=== PATIENT | female | born 1965 | race Caucasian/White ===

== ENCOUNTER 2021-07-09 19:50 | Emergency (ER) | payer BC ==
[~2021-07-09] VITALS: Ht 160 cm; Wt 88.5 kg
[~2021-07-09 19:50] MED LIST: COGENTIN1 MG; Z.0.AMBIEN10 MG; Z.0.ATORVASTATIN CA2; Z.0.CLONAZEPAM0.5 MG; Z.0.CYMBALTA60 MG; Z.0.LEVOTHYROXINE175; Z.0.PANTOPRAZOLE SO4; Z.0.TENORMIN50 MG; Z.0.WELLBUTRIN XL300; [UNRECOGNIZED DRUG - OTHER]
[2021-07-09] MEDS ORDERED: ACYCLOVIR800 MG PO (20:12)
[2021-07-09] MEDS ORDERED: ACETAMINOPHEN-1 EAC4 PO ×2 (20:12→20:14)
[2021-07-09] MEDS ORDERED: AZITHROMYCIN250 MG PO (20:12)
[2021-07-09] MEDS ORDERED: AZITHROMYCIN 250 MG TAB PO ONE (20:15)
[2021-07-09] MEDS ORDERED: AZITHROMYCIN 250 MG TAB ONE (20:39)
== END 2021-07-09 20:52 | disposition home or self-care (01) ==
LOC: FSED 20:10
DX: H66.92 Otitis media, unspecified, left ear (principal); B00.1 Herpesviral vesicular dermatitis; K21.9 Gastro-esophageal reflux disease without esophagitis; E78.00 Pure hypercholesterolemia, unspecified; F32.A Depression, unspecified
CPT/HCPCS: 99283

== ENCOUNTER 2022-07-10 21:01 | Emergency (ER) | payer BC ==
[~2022-07-10] VITALS: Ht 160 cm; Wt 86.2 kg
[~2022-07-10 21:01] MED LIST changes: +ACETAMINOPHEN-1 EAC4 PO; +ACYCLOVIR800 MG PO; +AZITHROMYCIN250 MG PO
[2022-07-10] MEDS ORDERED: ALBUTEROL/IPRATROPIUM 3 ML NEB NEB ONE (21:45)
[2022-07-10] MEDS ORDERED: PREDNISONE 20 MG TAB PO ONE (21:45)
[2022-07-10] MEDS ORDERED: ALBUTEROL/IPRATROPIUM 3 ML NEB ONE (22:06)
[2022-07-10] MEDS ORDERED: ALBUTEROL2.5 MG/3 M INH (23:18)
[2022-07-10] MEDS ORDERED: PREDNISONE20 MG PO (23:21)
== END 2022-07-10 23:35 | disposition home or self-care (01) ==
LOC: FSED 21:16
DX: R05.9 Cough, unspecified (principal); J45.901 Unspecified asthma with (acute) exacerbation; M54.6 Pain in thoracic spine; F41.9 Anxiety disorder, unspecified; F32.A Depression, unspecified
CPT/HCPCS: 71046; 99283; J7512

== ENCOUNTER 2023-03-19 13:47 | Emergency (ER) | payer BC ==
[~2023-03-19] VITALS: Ht 160 cm; Wt 86.2 kg
[~2023-03-19 13:47] MED LIST changes: +ALBUTEROL2.5 MG/3 M INH; +PREDNISONE20 MG PO
[2023-03-19] MEDS ORDERED: ALBUTEROL SULF 0.083% NEB SOLN 3 ML NEB NEB STA (14:02)
[2023-03-19] MEDS ORDERED: ONDANSETRON HCL 4 MG ORAL DISINTEGRATING TAB ONE (14:13)
[2023-03-19] MEDS ORDERED: DEXAMETHASONE SOD PHOS INJ 4 MG/ML SDV ONE (14:13)
[2023-03-19] MEDS ORDERED: CEFTRIAXONE 1 GM VIAL ONE (14:14)
[2023-03-19] MEDS ORDERED: ALBUTEROL SULF 0.083% NEB SOLN 3 ML NEB ONE (14:14)
[2023-03-19] MEDS ORDERED: CEFTRIAXONE 1 GM VIAL IM ONE (14:15)
[2023-03-19] MEDS ORDERED: ONDANSETRON HCL 4 MG ORAL DISINTEGRATING TAB PO ONE (14:15)
[2023-03-19] MEDS ORDERED: DEXAMETHASONE SOD PHOS 10 MG/1 ML VIAL IM ONE (14:15)
[2023-03-19 14:24] VITALS: PULSE 104; RESP 18; O2SAT 96
[2023-03-19] MEDS ORDERED: DEXAMETHASONE SOD PHOS INJ 4 MG/ML SDV IM ONE (14:30)
[2023-03-19] MEDS ORDERED: DEXAMETHASONE SOD PHOS INJ 4 MG/ML SDV IV ONE (14:30)
[2023-03-19] MEDS ORDERED: CEFDINIR300 MG PO (15:05)
[2023-03-19] MEDS ORDERED: ONDANSETRON ODT4 MG PO (15:05)
[2023-03-19] MEDS ORDERED: BROMFED DM COU118 ML PO (15:05)
== END 2023-03-19 15:30 | disposition home or self-care (01) ==
LOC: FSED 13:51
DX: R05.9 Cough, unspecified (principal); J20.9 Acute bronchitis, unspecified; J45.901 Unspecified asthma with (acute) exacerbation; E03.9 Hypothyroidism, unspecified; K21.9 Gastro-esophageal reflux disease without esophagitis; F41.9 Anxiety disorder, unspecified
CPT/HCPCS: 71045; 83518; 87400; 99283; J0696; J1100; Q0162

== ENCOUNTER 2023-12-14 15:33 | Emergency (ER) | payer BC, OTHER ==
[~2023-12-14] VITALS: Ht 160 cm; Wt 86.2 kg
[~2023-12-14 15:33] MED LIST changes: +BROMFED DM COU118 ML PO; +CEFDINIR300 MG PO; +ONDANSETRON ODT4 MG PO
[2023-12-14] MEDS ORDERED: DEXAMETHASONE SOD PHOS 10 MG/1 ML VIAL IV ONE (17:00)
[2023-12-14] MEDS ORDERED: DEXAMETHASONE SOD PHOS INJ 4 MG/ML SDV ONE (17:10)
[2023-12-14] MEDS ORDERED: CEFTRIAXONE 1 GM VIAL ONE (17:10)
[2023-12-14] MEDS ORDERED: LIDOCAINE HCL 1% LOCAL INJ 20 ML VIAL ONE (17:10)
[2023-12-14] MEDS: LIDOCAINE HCL 1% LOCAL INJ 20 ML VIAL INJ ONE (17:11)
[2023-12-14] MEDS: CEFTRIAXONE 1 GM VIAL IM ONE (17:11)
[2023-12-14] MEDS ORDERED: ONDANSETRON ODT4 MG PO (17:23)
[2023-12-14] MEDS: DEXAMETHASONE SOD PHOS INJ 4 MG/ML SDV INJ ONE (17:28)
[2023-12-14 17:36] VITALS: O2SAT 100
== END 2023-12-14 17:38 | disposition home or self-care (01) ==
LOC: FSED 15:49
DX: R51.9 Headache, unspecified (principal); J32.9 Chronic sinusitis, unspecified; R05.9 Cough, unspecified; J45.909 Unspecified asthma, uncomplicated; E03.9 Hypothyroidism, unspecified; F41.9 Anxiety disorder, unspecified; K21.9 Gastro-esophageal reflux disease without esophagitis
CPT/HCPCS: 70450; 99283; J0696; J1100 ×2; J2001